=== PATIENT | male | born 1970 | race Caucasian/White ===

== ENCOUNTER → 2023-05-01 | Outpatient (CLI) | payer OTHER ==
--- NOTE | 2023-05-02 07:45 | PE ---
EXAMINATION TYPE: PET CT fusion skull to thigh DATE OF EXAM: 05/01/2023 CLINICAL INDICATION:Male, 52 years old with history of R91.1 LUNG NODULE; TECHNIQUE: Following the intravenous administration of 11.1 mCi of F-18 FDG, whole body images are performed from the skull base to the midthigh. Images are reviewed on the computer in the coronal, a xial, and sagittal planes. Reconstructed rotating images are created on independent workstation and reviewed on the computer. A non-contrast CT is performed in conjunction with the PET scan. Glucose level 99 mg/dL COMPARISON: CT None, PET/CT None, FINDINGS: Mediastinal SUV mean is 2.1. Hepatic parenchyma SUV mean is 2.4. SKULL BASE AND NECK: No suspicious radiotracer activity. CHEST, MEDIASTINUM, AND HILAR REGION: * Right upper lung pulmonary nodule with spiculated borders measuring 15 x 20 mm Max SUV 2.1. * Right pulmonary hilum lymph node max SUV 4.9 evaluation difficult given lack of IV contrast. * Subcarinal lymph node max SUV 5.6 measuring 1.8 cm. ABDOMEN AND PELVIS: No suspicious radiotracer activity. OSSEOUS STRUCTURES: No suspicious radiotracer activity. OTHER CT: Mild cardiomegaly mild degeneration changes throughout the spine. IMPRESSION: Right upper lung pulmonary nodule with elevated FDG activity concerning for primary malignancy with m etastatic disease to the mediastinum right perihilar and subcarinal lymph node stations.
== END | disposition home or self-care (01) ==
LOC: RADPETMAIN 10:25
DX: R91.1 Solitary pulmonary nodule (principal)
CPT/HCPCS: 78815; A9552